=== PATIENT | male | born 1960 ===

== ENCOUNTER → 2024-05-02 | Outpatient (CLI) | payer OTHER ==
[~2024-05-02] MED LIST: ALBU90OI6 INH; AZIT250 PO; PRED20 PO
== END ==
LOC: LAB 11:38 → LAB SHORT 11:38
DX: L82.1 Other seborrheic keratosis (principal)
CPT/HCPCS: 88305

== ENCOUNTER 2024-05-11 08:05 | Day surgery (SDC) | payer OTHER ==
[~2024-05-11] VITALS: Ht 180.3 cm; Wt 98.5 kg
[~2024-05-11 08:05] MED LIST changes: +Lactated Ringer's 1,000 ML IV ONE; +propofoL 50 ML IV ONE
[2024-05-11] MEDS ORDERED: Lactated Ringer's 1,000 ML IV ONE (09:09)
--- NOTE | 2024-05-11 10:20 | NUR ---
05/11/[address] REMOVED SUTURES ; PT ASKED FROM LEFT UPPER CHEST AND IT WAS HEALED AFTER 7+ DAYS. PT WAS TOLD HE COULD REMOVE THEM ANY TIME AFTER 7 DAYS HIMSELF. INCISION WAS HEALING NICELY CLOSED W/ O ANY SIGHS OF IN FECTION OR OPENING.
== END 2024-05-11 10:23 | disposition home or self-care (01) ==
LOC: ORSCSDS 08:05
PROVIDERS: Surgery
PROC: 0DBK8ZX Excision of Ascending Colon, Via Natural or Artificial Opening Endoscopic, Diagnostic (ICD-10-PCS; principal; 2024-05-11 09:30)
DX: Z12.11 Encounter for screening for malignant neoplasm of colon (principal); D12.2 Benign neoplasm of ascending colon; K57.30 Diverticulosis of large intestine without perforation or abscess without bleeding; I25.10 Atherosclerotic heart disease of native coronary artery without angina pectoris
CPT/HCPCS: 88305; J2704; J7120